=== PATIENT | male | born 1960 | race American Indian/Alaskan Native ===

== ENCOUNTER 2017-11-06 12:36 | Emergency (ER) | payer BC, OTHER ==
[2017-11-06] MEDS ORDERED: MOTRIN PO ONE (16:00)
[2017-11-06] MEDS ORDERED: ULTRAM PO ONE (16:00)
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
[2017-11-06 18:15] VITALS: BP 108/66
== END 2017-11-06 18:14 | disposition home or self-care (01) ==
LOC: ED 12:36
DX: S39.012A Strain of muscle, fascia and tendon of lower back, initial encounter (principal); S13.4XXA Sprain of ligaments of cervical spine, initial encounter; I10 Essential (primary) hypertension; E11.9 Type 2 diabetes mellitus without complications; F17.200 Nicotine dependence, unspecified, uncomplicated; V49.49XA Driver injured in collision with other motor vehicles in traffic accident, initial encounter; Y93.89 Activity, other specified; Y92.89 Other specified places as the place of occurrence of the external cause; Y99.8 Other external cause status
CPT/HCPCS: 72040; 72100

== ENCOUNTER 2018-05-13 14:47 | Emergency (ER) | payer OTHER ==
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
--- NOTE | 2018-05-13 16:12 | XRay Report ---
PROCEDURE: XR SPINE CERVICAL 2-3V TECHNIQUE: 4 views of the cervical spine HISTORY: neck pain COMPARISONS: 11/06/2017 FINDINGS: There is no acute fracture or dislocation. The vertebral body heights are maintained. There is interv ertebral disc space narrowing at C5-C6 and C6-C7 with anterior and uncovertebral osteophyte formation . There is mild diffuse facet arthropathy. Findings are similar to the previous study. The paraverteb ral soft tissues are normal. The airway is patent. IMPRESSION: Degenerative changes of the cervical spine without acute fracture or dislocation. This document is electronically signed by Sunita Cates MD., May 13 2018 04:09:59 PM ET
[2018-05-13] MEDS ORDERED: DECADRON IM ONE (19:31)
[2018-05-13] MEDS ORDERED: TYLENOL PO ONE (19:31)
[2018-05-13] MEDS ORDERED: BENADRYL PO ONE (19:31)
[2018-05-13 19:50] VITALS: BP 123/81
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
== END 2018-05-13 20:50 | disposition home or self-care (01) ==
LOC: ED 14:47
DX: S16.1XXA Strain of muscle, fascia and tendon at neck level, initial encounter (principal); M50.30 Other cervical disc degeneration, unspecified cervical region; R51 Headache; I10 Essential (primary) hypertension; E11.9 Type 2 diabetes mellitus without complications; F17.200 Nicotine dependence, unspecified, uncomplicated; V49.49XA Driver injured in collision with other motor vehicles in traffic accident, initial encounter; Y93.89 Activity, other specified; Y92.89 Other specified places as the place of occurrence of the external cause; Y99.8 Other external cause status
CPT/HCPCS: 70450; 72040; 96372; 99284; J1100